=== PATIENT | female | born 1935 | race Caucasian/White ===

== ENCOUNTER 2017-03-27 08:27 | Day surgery (SDC) | payer MEDICARE, OTHER ==
[~2017-03-27 08:27] MED LIST: Lactated Ringers 1,000 ML IV SCH; Lidocaine 1%/Sod Bicarbonate in NS 8.4% 1 ML Syringe PRN; Sodium Chloride 0.9% 10 ML Syringe FLUSH PRN
--- NOTE | 2017-03-27 09:03 | PCM.PREANE ---
Preanesthetic Assessment - Anesthesia/Transfusion/Family Hx Anesthesia History: Prior Anesthesia Without Reaction Family History of Anesthesia Reaction: No Intubation History: Unknown - Review of Systems General: No Symptoms Pulmonary: Shortness of Breath (She feels it is related to her heartburn. Comes and goes. ), Cough Cardiovascular: No Symptoms, Other (hypertension) Gastrointestinal: Other (GERD, Gastritis) Neurological: Tingling (left arm), Tremors, Other (Raynads) Other: Reports: None - Physical Assessment NPO Status Date: 03/26/17 NPO Status Time: 20:00 Pulse: 69 O2 Sat by Pulse Oximetry: 95 Respiratory Rate: 16 Blood Pressure: 144/54 Temperature: 36.1 C Weight: 53 kg ASA Class: 2 Mental Status: Alert & Oriented x3 Airway Class: Mallampati = 1 Dentition: Reports: Dentures Thyro-Mental Finger Breadths: 3 Mouth Opening Finger Breadths: 3 ROM/Head Extension: Full Lungs: Clear to Auscultation, Normal Respiratory Effort Cardiovascular: Regular Rate, Regular Rhythm - Allergies Allergies/Adverse Reactions: Allergies Allergy/AdvReac Type Severity Reaction Status Date / Time amlodipine Allergy Cannot Verified 03/26/17 08:41 Remember lisinopril Allergy Cannot Verified 03/26/17 08:41 Remember propranolol Allergy Cannot Verified 03/26/17 08:41 Remember - Acknowledgements Anesthesia Type Planned: MAC Pt an Appropriate Candidate for the Planned Anesthesia: Yes Alternatives and Risks of Anesthesia Discussed w Pt/Guardian: Yes Pt/Guardian Understands and Agrees with Anesthesia Plan: Yes PreAnesthesia Questionnaire HEENT History: Reports: Allergic Rhinitis, Cataract, Impaired Vision, Other ( See Below) Other HEENT History: wears dentures Cardiovascular History: Reports: High Cholesterol, Hypertension Respiratory History: Reports: Other (See Below) Other Respiratory History: cough, acute bronchitis Gastrointestinal History: Reports: Chronic Constipation, Gastritis, GERD, Helicobacter Pylori Genitourinary History: Reports: Other (See Below) Other Genitourinary History: frequency [employer] History: Reports: None Musculoskeletal History: Reports: Arthritis, Other (See Below) Other Musculoskeletal History: osteopenia, reyanuds, left toe pain Neurological History: Reports: Other (See Below) Other Neuro History: benign essential tremor Psychiatric History: Reports: Other (See Below) Other Psychiatric History: insomnia Endocrine/Metabolic History: Reports: None Hematologic History: Reports: None Immunologic History: Reports: None Oncologic (Cancer) History: Reports: None Dermatologic History: Reports: Other (See Below) Other Dermatologic History: rash, rosacea, right foot excision neuroma - Past Surgical History Head Surgeries/Procedures: Reports: None Cardiovascular Surgical History: Reports: None Respiratory Surgical History: Reports: None GI Surgical History: Reports: Appendectomy, Colonoscopy, EGD Female Surgical History: Reports: None Male Surgical History: Reports: None Endocrine Surgical History: Reports: None Neurological Surgical History: Reports: None Musculoskeletal Surgical History: Reports: Other (See Below) Other Musculoskeletal Surgeries/Procedures:: foot surgery, bunion correction Oncologic Surgical History: Reports: None Dermatological Surgical History: Reports: None - SUBSTANCE USE Smoking Status *Q: Never Smoker Recreational Drug Use History: No - HOME MEDS Home Medications: Home Meds Aspirin [Halfprin] 81 mg PO DAILY 03/26/17 [History] Calcium Carbonate/Vitamin D3 [Calcium 600 + Vit D 400 Softgl] 1 cap PO DAILY 03/31 [History] Cetirizine [ZyrTEC] 10 mg PO DAILY 03/26/17 [History] Cholecalciferol (Vitamin D3) [Vitamin D3] 2,000 unit PO DAILY 03/26/17 [History] Dexlansoprazole [Dexilant] 30 mg PO DAILY 03/26/17 [History] Fluticasone Propionate [Flonase] 1 dose NASBOTH DAILY 03/26/17 [History] Hydrochlorothiazide [Hydrochlorothiazide] 25 mg PO DAILY 03/26/17 [History] Magnesium Oxide [Magnesium] 400 mg PO DAILY 03/26/17 [History] Multivitamin with Minerals [Multiple Vitamin] 1 tab PO DAILY 03/26/17 [History] Polyethylene Glycol 3350 [MiraLAX] 1 dose PO DAILY 03/26/17 [History] Triamcinolone Acetonide [IJD: Triamcinolone Acetonide 0.1% Crm] 1 dose TOP ASDIRECTED 03/26/17 [History] atorvaSTATin Calcium [Atorvastatin Calcium] 40 mg PO DAILY 03/26/17 [History] metroNIDAZOLE [Metrogel] 1 dose TOP ASDIRECTED 03/26/17 [History] - CURRENT (IN HOUSE) MEDS Current Meds: Current Medications Lactated Ringer's (Ringers, Lactated) 1,000 mls @ 125 mls/hr IV ASDIRECTED SUJEY Stop: 03/27/17 23:00 Lidocaine/Sodium Bicarbonate (Buffered Lidocaine 1% In Ns 8.4%) 0.25 ml .XX ONETIME PRN PRN Reason: Prior to IV Start Stop: 03/27/17 18:00 Sodium Chloride (Saline Flush) 10 ml FLUSH ASDIRECTED PRN PRN Reason: Keep Vein Open Stop: 03/27/17 18:00
[2017-03-27] MEDS ORDERED: Propofol 200 MG/20 ML SDV ONE (09:22)
--- NOTE | 2017-03-27 09:39 | PCM48HPAN ---
Post Anesthesia Note - EVALUATION WITHIN 48HRS OF ANESTHETIC Vital Signs in Normal Range: Yes Patient Participated in Evaluation: Yes Respiratory Function Stable: Yes Airway Patent: Yes Cardiovascular Function Stable: Yes Hydration Status Stable: Yes Pain Control Satisfactory: Yes Nausea and Vomiting Control Satisfactory: Yes Mental Status Recovered: Yes
--- NOTE | 2017-03-27 09:43 | PCM.OPNOTE ---
- General Post-Op/Procedure Note Date of Surgery/Procedure: 03/27/17 Operative Procedure(s): Esophagogastroduodenoscopy with GE junction and stomach biopsies Findings: Chronic atrophic gastritis with no hiatal hernia and a normal esophageal body Pre Op Diagnosis: Shortness of breath with a nonproductive cough and chronic GERD Post-Op Diagnosis: Chronic atrophic gastritis endoscopic Anesthesia Technique: MAC, Moderate Sedation Primary Surgeon: Christian Gonzalez Pathology: GE junction and gastric biopsies EBL in mLs: 0 Complications: None Condition: Good Free Text/Narrative:: After adequate IV sedation and analgesia was obtained with monitoring the patient was placed on her left side. A lubricated upper endoscope was inserted into the esophagus and advanced under direct vision to the stomach where additional air was given. The antrum was identified followed by passage of the scope into the duodenum. The second and first parts of the duodenum were endoscopically normal with no erosions or ulcers seen. The antrum was endoscopically normal as well. The scope was then withdrawn to the body of the stomach where there was evidence of atrophic gastritis located within the fundic and body regions. This manifested as loss of rugal folds and a patchy mucosal lining. In the retroflexed view there was no hiatal hernia. There were no erosions or mass lesions seen within the body of the stomach. At the GE junction there was no endoscopic evidence of inflammation acute or chronic. I took random biopsy for histologic review. The body of the esophagus was grossly normal endoscopically. Her vocal cords were briefly visualized and were unremarkable as well. Air was removed as I finished the procedure. Photographs were taken for the patient and for the medical record.
== END 2017-03-27 10:25 | disposition home or self-care (01) ==
LOC: JD.SDS 08:27
PROVIDERS: ATTEND Surgery
DX: K29.50 Unspecified chronic gastritis without bleeding (principal); K21.9 Gastro-esophageal reflux disease without esophagitis; I10 Essential (primary) hypertension; E78.5 Hyperlipidemia, unspecified; Z88.8 Allergy status to other drugs, medicaments and biological substances; Z79.82 Long term (current) use of aspirin; Z79.899 Other long term (current) drug therapy
CPT/HCPCS: 43239; 88305; 88342; J7120; 00740; J2704

== ENCOUNTER 2020-01-24 03:11 | Emergency (ER) | payer MEDICARE, OTHER ==
[2020-01-24] MEDS ORDERED: Sodium Chloride 0.9% 10 ML Syringe FLUSH PRN (03:30)
--- NOTE | 2020-01-24 03:36 | EDM.PDOC ---
ED HPI GENERAL MEDICAL PROBLEM - General Chief Complaint: Chest Pain Stated Complaint: CHEST PAIN Time Seen by Provider: 01/24/20 03:24 Source of Information: Reports: Patient History Limitations: Reports: No Limitations - History of Present Illness INITIAL COMMENTS - FREE TEXT/NARRATIVE: The patient presents with chest pain. This started just prior to arrival. She was sleeping and it woke her up. The pain is gone now. She did take an aspirin at home. She has no history of heart disease. She has no fever, chills, cough, congestion, shortness of breath, abdominal pain, nausea or vomiting. She does not smoke. Onset: Sudden Duration: Minutes: Location: Reports: Chest Quality: Reports: Sharp Severity: Moderate Improves with: Reports: None Worsens with: Reports: None Associated Symptoms: Reports: Chest Pain. Denies: Cough, Fever/Chills, Headaches, Nausea/Vomiting, Shortness of Breath - Related Data Allergies Allergy/AdvReac Type Severity Reaction Status Date / Time propranolol Allergy Severe Cannot Verified 01/24/20 03:20 Remember amlodipine Allergy Cannot Verified 03/26/17 08:41 Remember lisinopril Allergy Cannot Verified 03/26/17 08:41 Remember Home Meds: Home Meds Aspirin [Halfprin] 81 mg PO DAILY 03/26/17 [History] Calcium Carbonate/Vitamin D3 [Calcium 600 + Vit D 400 Softgl] 1 cap PO DAILY 03/26/17 [History] Cetirizine [ZyrTEC] 10 mg PO DAILY 03/26/17 [History] Cholecalciferol (Vitamin D3) [Vitamin D3] 2,000 unit PO DAILY 03/26/17 [History] Dexlansoprazole [Dexilant] 30 mg PO DAILY 03/26/17 [History] Fluticasone Propionate [Flonase] 1 dose NASBOTH DAILY 03/26/17 [History] Magnesium Oxide [Magnesium] 400 mg PO DAILY 03/26/17 [History] Multivitamin with Minerals [Multiple Vitamin] 1 tab PO DAILY 03/26/17 [History] Polyethylene Glycol 3350 [MiraLAX] 1 dose PO DAILY 03/26/17 [History] Triamcinolone Acetonide [IJD: Triamcinolone Acetonide 0.1% Crm] 1 dose TOP ASDIRECTED 03/26/17 [History] atorvaSTATin Calcium [Atorvastatin Calcium] 40 mg PO DAILY 03/26/17 [History] hydroCHLOROthiazide [Hydrochlorothiazide] 25 mg PO DAILY 03/26/17 [History] metroNIDAZOLE [Metrogel] 1 dose TOP ASDIRECTED 03/26/17 [History] Past Medical History HEENT History: Reports: Allergic Rhinitis, Cataract, Impaired Vision, Other (See Below) Other HEENT History: wears dentures Cardiovascular History: Reports: High Cholesterol, Hypertension Respiratory History: Reports: Other (See Below) Other Respiratory History: cough, acute bronchitis Gastrointestinal History: Reports: Chronic Constipation, Gastritis, GERD, Helicobacter Pylori Genitourinary History: Reports: Other (See Below) Other Genitourinary History: frequency [employer] ENG[employer]ER History: Reports: None Musculoskeletal History: Reports: Arthritis, Other (See Below) Other Musculoskeletal History: osteopenia, reyanuds, left toe pain Neurological History: Reports: Other (See Below) Other Neuro History: benign essential tremor Psychiatric History: Reports: Other (See Below) Other Psychiatric History: insomnia Endocrine/Metabolic History: Reports: None Hematologic History: Reports: None Immunologic History: Reports: None Oncologic (Cancer) History: Reports: None Dermatologic History: Reports: Other (See Below) Other Dermatologic History: rash, rosacea, right foot excision neuroma - Past Surgical History Head Surgeries/Procedures: Reports: None Cardiovascular Surgical History: Reports: None Respiratory Surgical History: Reports: None GI Surgical History: Reports: Appendectomy, Colonoscopy, EGD Female Surgical History: Reports: None Endocrine Surgical History: Reports: None Neurological Surgical History: Reports: None Musculoskeletal Surgical History: Reports: Other (See Below) Other Musculoskeletal Surgeries/Procedures:: foot surgery, bunion correction Oncologic Surgical History: Reports: None Dermatological Surgical History: Reports: None Social & Family History - Caffeine Use Caffeine Use: Reports: Coffee ED ROS GENERAL - Review of Systems Review Of Systems: See Below Constitutional: Reports: No Symptoms HEENT: Reports: No Symptoms Respiratory: Reports: No Symptoms Cardiovascular: Reports: Chest Pain Endocrine: Reports: No Symptoms GI/Abdominal: Reports: No Symptoms : Reports: No Symptoms Musculoskeletal: Reports: No Symptoms Skin: Reports: No Symptoms ED EXAM, GENERAL - Physical Exam Exam: See Below Exam Limited By: No Limitations General Appearance: Alert, No Apparent Distress Ears: Normal External Exam Nose: Normal Inspection Head: Atraumatic, Normocephalic Neck: Normal Inspection Respiratory/Chest: No Respiratory Distress, Lungs Clear, Normal Breath Sounds Cardiovascular: Regular Rate, Rhythm, No Edema, No Murmur GI/Abdominal: Soft, Non-Tender, No Organomegaly, No Mass Back Exam: Normal Inspection Extremities: Normal Inspection EKG INTERPRETATION EKG Date: 01/24/20 Time: 03:15 Rhythm: NSR Rate (Beats/Min): 63 [place]: Normal P-Wave: Present QRS: Normal ST-T: Normal QT: Normal Course - Vital Signs Last Recorded V/S: Last Vital Signs Temp 97.1 F 01/24/20 03:16 Pulse 65 01/24/20 03:16 Resp 18 01/24/20 03:16 BP 181/64 H 01/24/20 03:16 Pulse Ox 97 01/24/20 03:16 - Orders/Labs/Meds Orders: Active Orders 24 hr Category Date Time Status Cardiac Monitoring [RC] . DIRECTED Care 01/24/20 03:31 Active EKG Documentation Completion [RC] STAT Care 01/24/20 03:31 Active Peripheral IV Care [RC] . DIRECTED Care 01/24/20 03:31 Active Chest 1V Frontal [CR] Stat Exams 01/24/20 03:31 Taken CBC WITH AUTO DIFF [HEME] Stat Lab 01/24/20 03:19 Results Sodium Chloride 0.9% [Saline Flush] Med 01/24/20 03:30 Active 10 ml FLUSH ASDIRECTED PRN Peripheral IV Insertion Adult [OM.PC] Stat Oth 01/24/20 03:30 Ordered Medication Orders Sodium Chloride (Saline Flush) 10 ml FLUSH ASDIRECTED PRN PRN Reason: Keep Vein Open Last Admin: 01/24/20 03:33 Dose: 10 ml Documented by: CARLOS Labs: Laboratory Tests 01/24/20 01/24/20 Range/Units 03:19 03:19 WBC 5.54 (3.98-10.04) K/mm3 RBC 4.76 (3.98-5.22) M/mm3 Hgb 14.2 (11.2-15.7) gm/dl Hct 43.2 (34.1-44.9) % MCV 90.8 (79.4-94.8) fl MCH 29.8 (25.6-32.2) pg MCHC 32.9 (32.2-35.5) g/dl RDW Std Deviation 45.0 (36.4-46.3) fL Plt Count 227 (182-369) K/mm3 MPV 10.4 (9.4-12.3) fl Neut % (Auto) 42.0 (34.0-71.1) % Lymph % (Auto) 35.4 (19.3-51.7) % [place] % (Auto) 17.7 H (4.7-12.5) % Eos % (Auto) 4.0 (0.7-5.8) Baso % (Auto) 0.7 (0.1-1.2) % Neut # (Auto) 2.33 (1.56-6.13) K/mm3 Lymph # (Auto) 1.96 (1.18-3.74) K/mm3 [place] # (Auto) 0.98 H (0.24-0.36) K/mm3 Eos # (Auto) 0.22 (0.04-0.36) K/mm3 Baso # (Auto) 0.04 (0.01-0.08) K/mm3 Sodium 138 (136-145) mEq/L Potassium 3.4 L (3.5-5.1) mEq/L Chloride 102 (98-107) mEq/L Carbon Dioxide 31 (21-32) mEq/L Anion Gap 8.4 (5-15) BUN 8 (7-18) mg/dL Creatinine 0.8 (0.55-1.02) mg/dL Est Cr Clr Drug Dosing 41.40 mL/min Estimated GFR (MDRD) > 60 (>60) mL/min BUN/Creatinine Ratio 10.0 L (14-18) Glucose 105 (83-115) mg/dL Calcium 8.5 (8.5-10.1) mg/dL Total Bilirubin 0.7 (0.2-1.0) mg/dL AST 27 (15-37) U/L ALT 30 (14-59) U/L Alkaline Phosphatase 92 (46-116) U/L Troponin I < 0.017 (0.00-0.056) ng/mL Total Protein 6.7 (6.4-8.2) g/dl Albumin 3.3 L (3.4-5.0) g/dl Globulin 3.4 gm/dL Albumin/Globulin Ratio 1.0 (1-2) Meds: Medications Generic Name Dose Route Start Last Admin Trade Name Reji PRN Reason Stop Dose Admin Sodium Chloride 10 ml 01/24/20 03:30 01/24/20 03:33 Saline Flush FLUSH 10 ml ASDIRECTED PRN Administration Keep Vein Open - Re-Assessments/Exams Free Text/Narrative Re-Assessment/Exam: 01/24/20 03:35 I ordered an IV saline lock, EKG, CXR and labs. She did take aspirin before arrival and he chest pain is gone now. 01/24/20 04:18 Her CBC and CMP look good. Her troponin is negative. She still has no pain. I will discharge her home. Departure - Departure Time of Disposition: 04:25 Disposition: Home, Self-Care 01 Condition: Good Clinical Impression: Atypical chest pain Referrals: Vickie Melchor, [employer] [Primary Care Provider] - 1 Week Forms: ED Department Discharge Additional Instructions: Take your medication as prescribed. Follow up with Vickie Melchor in a couple of days. Please return if you are worse. Sepsis Event Note (ED) - Evaluation Sepsis Screening Result: No Definite Risk - Focused Exam Vital Signs: Vital Signs Temp Pulse Resp BP Pulse Ox 01/24/20 03:16 97.1 F 65 18 181/64 H 97 - My Orders Last 24 Hours: My Active Orders 01/24/20 03:19 CBC WITH AUTO DIFF [HEME] Stat 01/24/20 03:30 Sodium Chloride 0.9% [Saline Flush] 10 ml FLUSH ASDIRECTED PRN Peripheral IV Insertion Adult [OM.PC] Stat 01/24/20 03:31 Cardiac Monitoring [RC] . DIRECTED EKG Documentation Completion [RC] STAT Peripheral IV Care [RC] . DIRECTED Chest 1V Frontal [CR] Stat - Assessment/Plan Last 24 Hours: My Active Orders 01/24/20 03:19 CBC WITH AUTO DIFF [HEME] Stat 01/24/20 03:30 Sodium Chloride 0.9% [Saline Flush] 10 ml FLUSH ASDIRECTED PRN Peripheral IV Insertion Adult [OM.PC] Stat 01/24/20 03:31 Cardiac Monitoring [RC] . DIRECTED EKG Documentation Completion [RC] STAT Peripheral IV Care [RC] . DIRECTED Chest 1V Frontal [CR] Stat
== END 2020-01-24 04:30 | disposition home or self-care (01) ==
LOC: JD.ED 03:11
DX: R07.89 Other chest pain (principal); I10 Essential (primary) hypertension; E78.00 Pure hypercholesterolemia, unspecified; K21.9 Gastro-esophageal reflux disease without esophagitis; Z90.49 Acquired absence of other specified parts of digestive tract; Z88.8 Allergy status to other drugs, medicaments and biological substances; Z79.82 Long term (current) use of aspirin; Z79.899 Other long term (current) drug therapy
CPT/HCPCS: 36415; 71045; 80053; 84484; 85025; 93005; 93010; 99283; 99285-25

== ENCOUNTER 2021-11-14 06:52 | Inpatient (IN) | payer MEDICARE, OTHER ==
[~2021-11-14 06:52] MED LIST changes: -Lactated Ringers 1,000 ML IV SCH; +Lidocaine 1%/Sod Bicarbonate in NS 8.4% 1 ML Syringe IDERM PRN; -Lidocaine 1%/Sod Bicarbonate in NS 8.4% 1 ML Syringe PRN; +Sodium Chloride 0.9% 10 ML Syringe FLUSH SCH
[2021-11-14] MEDS ORDERED: Propofol 200 MG/20 ML SDV ONE (06:59)
[2021-11-14] MEDS ORDERED: Rocuronium 50 MG/5 ML Vial ONE (06:59)
[2021-11-14] MEDS ORDERED: Ondansetron 4 MG/2 ML SDV ONE (06:59)
[2021-11-14] MEDS ORDERED: Midazolam 1 MG/ML 2 ML SDV ONE (07:00)
[2021-11-14] MEDS ORDERED: fentaNYL 100 MCG/2 ML SDV ONE (07:00)
[2021-11-14] MEDS ORDERED: Lidocaine 1% 2 ML ONE (07:01)
[2021-11-14] MEDS: Lactated Ringers 1,000 ML IV SCH ×2 (07:20→10:45)
[2021-11-14] MEDS ORDERED: Sugammadex Sodium 200 MG/2 ML VIAL ONE (08:11)
[2021-11-14] MEDS ORDERED: HYDROmorphone 0.5 MG/0.5 ML Syringe IVPUSH PRN (08:34)
[2021-11-14] MEDS ORDERED: fentaNYL 100 MCG/2 ML SDV IVPUSH PRN (08:34)
[2021-11-14] MEDS ORDERED: Promethazine 12.5 MG in Sodium Chloride 0.9% 50 ML IV ONE (10:30)
[2021-11-14] MEDS ORDERED: Hydrochlorothiazide 25 MG Tab PO ONE (12:00)
[2021-11-14] MEDS ORDERED: Acetaminophen 325 MG Tab PO ONE (12:40)
[2021-11-14] MEDS ORDERED: traMADol 50 MG Tab PO ONE (13:00)
== END 2021-11-14 13:14 | disposition home or self-care (01) | DRG 328 ==
LOC: JD.MS 06:52
PROVIDERS: ADMIT Surgery; ATTEND Surgery
PROC: 0DV44ZZ Restriction of Esophagogastric Junction, Percutaneous Endoscopic Approach (ICD-10-PCS; principal; 2021-11-14)
DX: K21.9 Gastro-esophageal reflux disease without esophagitis (principal); K44.9 Diaphragmatic hernia without obstruction or gangrene; I10 Essential (primary) hypertension; K59.09 Other constipation; E78.5 Hyperlipidemia, unspecified; G47.00 Insomnia, unspecified; Z86.39 Personal history of other endocrine, nutritional and metabolic disease; Z87.2 Personal history of diseases of the skin and subcutaneous tissue; Z87.440 Personal history of urinary (tract) infections; Z88.8 Allergy status to other drugs, medicaments and biological substances; Z79.899 Other long term (current) drug therapy; Z98.42 Cataract extraction status, left eye; Z98.41 Cataract extraction status, right eye; Z87.09 Personal history of other diseases of the respiratory system; Z90.49 Acquired absence of other specified parts of digestive tract; Z98.890 Other specified postprocedural states; Z90.89 Acquired absence of other organs; Z97.2 Presence of dental prosthetic device (complete) (partial)
CPT/HCPCS: A9270-GY; J2250; J2405; J2550; J2704; J3010; J3490; J7120

== ENCOUNTER 2023-09-05 07:46 | Day surgery (SDC) | payer MEDICARE, OTHER ==
[~2023-09-05 07:46] MED LIST changes: -Lidocaine 1%/Sod Bicarbonate in NS 8.4% 1 ML Syringe IDERM PRN
[2023-09-05] MEDS: Lactated Ringers 1,000 ML IV SCH (08:10)
[2023-09-05] MEDS ORDERED: Propofol 200 MG/20 ML SDV ONE (08:27)
[2023-09-05] MEDS ORDERED: Ondansetron 4 MG/2 ML SDV ONE (08:35)
== END 2023-09-05 09:20 | disposition home or self-care (01) ==
LOC: JD.SDS 07:46
PROVIDERS: ATTEND Surgery
DX: R13.10 Dysphagia, unspecified (principal); K21.9 Gastro-esophageal reflux disease without esophagitis; I10 Essential (primary) hypertension; E78.00 Pure hypercholesterolemia, unspecified; Z79.899 Other long term (current) drug therapy; Z88.8 Allergy status to other drugs, medicaments and biological substances
CPT/HCPCS: 43239; J2405; J2704; J7120; 00731; 99100

== ENCOUNTER 2024-01-31 12:52 | Emergency (ER) | payer MEDICARE, OTHER ==
[2024-01-31] MEDS: Sodium Chloride 0.9% 10 ML Syringe FLUSH PRN (14:13)
[2024-01-31] MEDS: Metoclopramide 10 MG/2 ML SDV IVPUSH ONE (14:13)
[2024-01-31] MEDS: diphenhydrAMINE 50 MG/ML SDV IVPUSH ONE (14:13)
[2024-01-31] MEDS: HYDROmorphone 0.5 MG/0.5 ML Syringe IVPUSH ONE (14:14)
== END 2024-01-31 15:07 | disposition home or self-care (01) ==
LOC: JD.ED 12:52
DX: R51.9 Headache, unspecified (principal); I10 Essential (primary) hypertension; E78.00 Pure hypercholesterolemia, unspecified; Z88.8 Allergy status to other drugs, medicaments and biological substances; Z79.899 Other long term (current) drug therapy; Z86.16 Personal history of COVID-19; Z90.49 Acquired absence of other specified parts of digestive tract
CPT/HCPCS: 70450; 96374; 96375; 99284; J1171; J1200; J2765; J3490; 99283

== ENCOUNTER 2024-05-06 06:15 | Day surgery (SDC) | payer MEDICARE, OTHER ==
[~2024-05-06 06:15] MED LIST changes: +Morphine 8 MG, EPINEPHrine 0.3 MG, Ketorolac 30 MG, Sodium Chloride 0.9% 7.9 ML PRN; -Sodium Chloride 0.9% 10 ML Syringe FLUSH PRN; -Sodium Chloride 0.9% 10 ML Syringe FLUSH SCH
[2024-05-06] MEDS ORDERED: Lactated Ringers 1,000 ML IV ONE (06:16)
[2024-05-06] MEDS ORDERED: Ropivacaine 0.5% 5 MG/ML 30 ML SDV ONE (07:15)
[2024-05-06] MEDS ORDERED: Propofol 200 MG/20 ML SDV ONE (07:15)
[2024-05-06] MEDS ORDERED: fentaNYL 250 MCG/5 ML SDV ONE (07:16)
[2024-05-06] MEDS ORDERED: ceFAZolin 2 GM Vial ONE (07:16)
[2024-05-06 07:22] LABS: INR 1.33; PROTHROMBIN TIME 13.8 SECONDS (9.7-12.0)
[2024-05-06 07:23] LABS: PTT,PARTIAL THROMBOPLSTIN TIME 28.6 SECONDS (21.7-31.4)
[2024-05-06] MEDS ORDERED: Ondansetron 4 MG/2 ML SDV ONE (07:52)
[2024-05-06] MEDS ORDERED: Lidocaine 1% 2 ML ONE (07:52)
[2024-05-06] MEDS ORDERED: Rocuronium 50 MG/5 ML Vial ONE (07:54)
[2024-05-06] MEDS ORDERED: ePHEDrine 50 MG/ML SDV ONE (08:13)
[2024-05-06] MEDS ORDERED: Lactated Ringers 1,000 ML ONE (08:59)
[2024-05-06] MEDS ORDERED: Sugammadex Sodium 200 MG/2 ML VIAL IV ONE (09:15)
[2024-05-06] MEDS: Tranexamic Acid 1,000 MG/10 ML Vial ONE (09:19)
[2024-05-06] MEDS: VANCOmycin 1 GM SDV ONE (09:19)
[2024-05-06] MEDS: Morphine 8 MG, EPINEPHrine 0.3 MG, Ketorolac 30 MG, Sodium Chloride 0.9% 7.9 ML PRN (09:19)
[2024-05-06] MEDS: HYDROmorphone 0.5 MG/0.5 ML Syringe IVPUSH PRN (10:03)
[2024-05-06] MEDS: fentaNYL 100 MCG/2 ML SDV IVPUSH PRN (10:14)
[2024-05-06] MEDS: Ondansetron 4 MG/2 ML SDV IVPUSH PRN (11:02)
[2024-05-06] MEDS: Acetaminophen/HYDROcodone 325-5 MG Tab PO PRN (11:07)
== END 2024-05-06 12:46 | disposition home or self-care (01) ==
LOC: JD.SDS 06:15
PROVIDERS: ATTEND Orthopaedic Surgery
DX: M17.12 Unilateral primary osteoarthritis, left knee (principal); I10 Essential (primary) hypertension; K21.9 Gastro-esophageal reflux disease without esophagitis; E78.5 Hyperlipidemia, unspecified
CPT/HCPCS: 0055T; 27447; 36415; 64447; 73560; 85610; 85730; 97110; 97116; 97162; A9270; C1713; C1776; J0171; J0690; J1885; J2272; J2405; J2704; J2795; J3010; J7120; 01400; 99100; J3490

== ENCOUNTER 2024-12-31 08:39 | Day surgery (SDC) | payer MEDICARE, OTHER ==
[~2024-12-31 08:39] MED LIST changes: -Morphine 8 MG, EPINEPHrine 0.3 MG, Ketorolac 30 MG, Sodium Chloride 0.9% 7.9 ML PRN; +Sodium Chloride 0.9% 10 ML Syringe FLUSH PRN; +Sodium Chloride 0.9% 10 ML Syringe FLUSH SCH
[2024-12-31] MEDS: Lactated Ringers 1,000 ML IV SCH (09:15)
[2024-12-31] MEDS ORDERED: Propofol 200 MG/20 ML SDV ONE (09:52)
[2024-12-31] MEDS ORDERED: Lidocaine 1% 4 ML ONE (09:52)
== END 2024-12-31 11:37 | disposition home or self-care (01) ==
LOC: JD.SDS 08:39
PROVIDERS: ATTEND Surgery
DX: K21.00 Gastro-esophageal reflux disease with esophagitis, without bleeding (principal); K31.89 Other diseases of stomach and duodenum; K25.9 Gastric ulcer, unspecified as acute or chronic, without hemorrhage or perforation; I10 Essential (primary) hypertension; E78.00 Pure hypercholesterolemia, unspecified; F17.210 Nicotine dependence, cigarettes, uncomplicated; Z88.8 Allergy status to other drugs, medicaments and biological substances; Z79.899 Other long term (current) drug therapy; Z98.890 Other specified postprocedural states
CPT/HCPCS: 43239; C9777; J2003; J2704; J7120; 00731; 00811; 99100